=== PATIENT | female | born 1950 | race Caucasian/White ===

== ENCOUNTER 2016-12-26 04:24 | Outpatient (CLI) | payer BC | END 2016-12-26 04:25 | disposition short-term general hospital (02) | LOC: EMS 04:24 | PROVIDERS: ATTEND Surgery | DX: R55 Syncope and collapse (principal) | CPT/HCPCS: A0425; A0427 ==

== ENCOUNTER 2020-05-05 17:51 | Outpatient (CLI) | payer MEDICARE, BC | END 2020-05-05 17:52 | disposition short-term general hospital (02) | LOC: EMS 17:51 | DX: M54.9 Dorsalgia, unspecified (principal); R00.0 Tachycardia, unspecified; R11.0 Nausea; R53.83 Other fatigue | CPT/HCPCS: A0425; A0429 ==

== ENCOUNTER 2020-05-07 07:52 | Outpatient (CLI) | payer MEDICARE, BC ==
--- OUTSIDE RECORDS SUMMARY | 2020-05-17 20:29 | EXTERNAL MEDICAL SUMMARY RPT | Continuity of Care Document ---
:1950 Demographics Phone Unavailable Preferred Language Unknown Marital Status Unknown Rastafari Affiliation Unknown Race Unknown Ethnic Group Unknown Author Organization [place] Address [address] [place] [address] Phone Problems date description facility [id number] Syncope and collapse [[id number]] [facility] [id number] [facility]ync[facility] Social History date description facility [id number]
== END 2020-05-07 07:53 | disposition short-term general hospital (02) ==
LOC: EMS 07:52
DX: R00.1 Bradycardia, unspecified (principal)
CPT/HCPCS: A0425; A0429